=== PATIENT | female | born 1955 | race Two or more races ===

== ENCOUNTER 2020-02-01 06:53 | Outpatient (CLI) | payer OTHER | END 2020-02-01 07:01 | disposition home or self-care (01) | LOC: LAB 06:53 | PROVIDERS: ATTEND Anesthesiology Pain Medicine | DX: D68.8 Other specified coagulation defects (principal); M48.07 Spinal stenosis, lumbosacral region; M51.26 Other intervertebral disc displacement, lumbar region; F32.5 Major depressive disorder, single episode, in full remission ==

== ENCOUNTER 2020-02-22 06:05 | Day surgery (SDC) | payer OTHER ==
[~2020-02-22 06:05] MED LIST: ALLOPURINOL100 MG PO; ASPIR 8181 MG PO; ENALAPRIL MALEA10 MG PO; GRALISE600 MG PO; HORIZANT300 MG PO; HYDROCHLOROTHIA25 MG PO; PAXIL PO; [UNRECOGNIZED DRUG - OTHER] PO
== END 2020-02-22 09:45 | disposition home or self-care (01) ==
LOC: CIR.AMB 06:05 → LAB 07:00 → CIR.AMB 09:45 → LAB 12:13
PROVIDERS: ATTEND Anesthesiology Pain Medicine
DX: M48.07 Spinal stenosis, lumbosacral region (principal); M51.26 Other intervertebral disc displacement, lumbar region; Z20.828 Contact with and (suspected) exposure to other viral communicable diseases

== ENCOUNTER 2020-11-25 06:26 | Day surgery (SDC) | payer OTHER ==
[~2020-11-25 06:26] MED LIST changes: +GABAPENTIN300 M2 PO; +LIPITOR40 MG PO
[2020-11-25] MEDS ORDERED: CIPRO250 MG PO (10:44)
[2020-11-25] MEDS ORDERED: ULTRACET PO (10:44)
== END 2020-11-25 16:25 | disposition home or self-care (01) ==
LOC: CIR.AMB 06:26 → SURH 10:00 → CIR.AMB 10:00 → EDSTATUS 10:00 → CIR.AMB 10:30
PROVIDERS: ATTEND Obstetrics & Gynecology Gynecology
DX: D25.1 Intramural leiomyoma of uterus (principal); D25.0 Submucous leiomyoma of uterus; N81.3 Complete uterovaginal prolapse; N72 Inflammatory disease of cervix uteri; Z20.822 Contact with and (suspected) exposure to COVID-19